=== PATIENT | male | born 1945 | race Caucasian/White ===

== ENCOUNTER 2022-12-12 07:56 | Observation (INO) ==
--- NOTE | 2022-10-25 14:16 | PAT Medication Instructions ---
Medication Instructions Date of Service October 25, 2022 Home Medications aspirin 81 mg tablet,delayed release 81 mg PO QAM atorvastatin 40 mg tablet 40 mg PO QAM clopidogrel 75 mg tablet 75 mg PO QAM cyanocobalamin (vitamin B-12) 1,000 mcg tablet 1,000 mcg PO QAM isosorbide mononitrate 30 mg tablet,extended release 24 hr 30 mg PO QAM losartan 100 mg-hydrochlorothiazide 25 mg tablet 1 tab PO QAM magnesium oxide 400 mg PO QAM metoprolol succinate 100 mg tablet,extended release 24 hr 100 mg PO QAM multivitamin 1 tab PO QAM omega-3 fatty acids 1,000 mg PO QAM potassium gluconate 600 mg (99 mg) tablet 600 mg PO QAM pyridoxine (vitamin B6) 200 mg tablet 200 mg PO QAM ASK your prescriber and surgeon clopidogrel 75 mg tablet 75 mg PO QAM (for spinal anesthesia: will need to hold Plavix/clopidogrel for at least 7 days prior to surgery) aspirin 81 mg tablet,delayed release 81 mg PO QAM (okay to continue for spinal anesthesia) STOP taking 2 weeks before surgery omega-3 fatty acids 1,000 mg PO QAM DO NOT take the morning of surgery potassium gluconate 600 mg (99 mg) tablet 600 mg PO QAM cyanocobalamin (vitamin B-12) 1,000 mcg tablet 1,000 mcg PO QAM losartan 100 mg-hydrochlorothiazide 25 mg tablet 1 tab PO QAM magnesium oxide 400 mg PO QAM multivitamin 1 tab PO QAM pyridoxine (vitamin B6) 200 mg tablet 200 mg PO QAM Take morning of surgery With a small sip of water, OTHERWISE NOTHING TO EAT OR DRINK AFTER MIDNIGHT: metoprolol succinate 100 mg tablet,extended release 24 hr 100 mg PO QAM isosorbide mononitrate 30 mg tablet,extended release 24 hr 30 mg PO QAM atorvastatin 40 mg tablet 40 mg PO QAM Other Notes If you have any questions please call us at [phone] or [phone] or [phone] or [phone]
--- NOTE | 2022-10-31 13:17 | Anesthesiology Consultation ---
Date of Service October 31, 2022 Assessment & Plan (1) Encounter for pre-operative examination: Plan - awaiting pt determination (if requests bilat TKA will have to re-discuss with anesthesiologist). - risks of bilat TKA with anesthesiologist requested by pt. Case discussed with Dr. Pina who advised given patient's cardiac history, anesthesia would advise the pt pursue unilateral TKA due to elevated risk with bilateral TKA. Surgeon's and patient office made aware. Pt states he wishes to consider his options and will notify surgeon's office. - anesthesia complication/concern: severe sore throat and thrush post-intubation with CABG. - plavix/ASA: to continue aspirin berry-operatively per cardiology. Cardiology was contacted and advises holding plavix maximum of 5 days. - cardiology clearance 09/29/22: "...able to achieve appropriate METS w/o sxs--will clear from cardiac perspective. Should not stop ASA preop. May hold plavix from cardiac perspective up to 5 days preop and should resume as soon as safely possible postop..." - cardiology 05/02/22: "...denies chest pain or SOB or palpitations, SINGER with no limitation...12/2020 carotids-mild < 50% stenosis bilaterally...coronary artery disease-history of NSTEMI 2002, s/p PCI to diag and stent to RCA 2001 and 2002 s/p CABG x 3 with no clinical angina...PVCs-moderate burden, on holter, asymptomatic, monitor...return in about 1 year..." - bilat vs staged TKA: Risks discussed with patient and he prefers to proceed with bilat TKA at this time. He expresses plan to further discuss consideration with surgeon's office and anesthesiologist. - Outpatient joint assessment: Patient is currently scheduled for inpatient pathway. If re-evaluated pending system levels during current pandemic/surgeon requests outpatient pathway for either bilat or unilateral TKA, patient is not acceptable candidate for outpatient joint program from anesthesia standpoint. Chart Review Chart Review: Pending: Refer to Additional Notes / Consult section and Patient seen in Pre Admission Testing Teaching & Discussion Pre-Anesthesia Teaching/Discussion Notes: Instructed NPO after midnight before surgery, except medications with 15 cc of water. Medication instructions provided according to the PAT guidelines. History Surgery Operation Date: 12/12/22 08:50 Proposed Procedures p Bilateral Total Knee Arthroplasty - Ruel Mcgee, Height/Weight Height: 5 ft 7 in Weight: 90.718 kg Allergies Allergy/AdvReac Type Severity Reaction Status Date / Time lisinopril AdvReac Intermediate cough Uncoded 10/31/22 09:56 Medications Home Medications Medication Instructions Recorded Confirmed Last Taken aspirin 81 mg tablet,delayed 81 mg PO QAM 09/21/20 10/19/22 09/21/20 08:00 release atorvastatin 40 mg tablet 40 mg PO QAM 09/21/20 10/19/22 09/21/20 08:00 clopidogrel 75 mg tablet 75 mg PO QAM 09/21/20 10/19/22 09/21/20 08:00 cyanocobalamin (vitamin B-12) 1,000 mcg PO QAM 09/21/20 10/19/22 09/21/20 08:00 1,000 mcg tablet isosorbide mononitrate 30 mg 30 mg PO QAM 09/21/20 10/19/22 09/22/20 08:00 tablet,extended release 24 hr losartan 100 1 tab PO QAM 09/21/20 10/19/22 09/21/20 08:00 mg-hydrochlorothiazide 25 mg tablet magnesium oxide 400 mg PO QAM 09/21/20 10/19/22 09/21/20 08:00 metoprolol succinate 100 mg 100 mg PO QAM 09/21/20 10/19/22 09/22/20 08:00 tablet,extended release 24 hr multivitamin 1 tab PO QAM 09/21/20 10/19/22 09/21/20 08:00 omega-3 fatty acids 1,000 mg PO QAM 09/21/20 10/19/22 09/21/20 08:00 potassium gluconate 600 mg (99 mg) 600 mg PO QAM 09/21/20 10/19/22 09/21/20 08:00 tablet pyridoxine (vitamin B6) 200 mg 200 mg PO QAM 09/21/20 10/19/22 09/21/20 08:00 tablet Past Medical History Medical History (Updated 10/31/22 @ 13:38 by Kaelyn Boland PA-C) CAD (coronary artery disease) S/p 3 vessel CABG 07/05/19 S/p diagonal and RCA stent 2001 RCA stent 2002 GERD (gastroesophageal reflux disease) rare, diet triggered Hyperlipidemia Hypertension controlled, stable per pt Myocardial Infarction NSTEMI 2002 and 2006 Prediabetes Pulmonary nodule Spinal stenosis Patient denies h/o stroke, seizures, heart failure, blood clots or blood transfusions. Exercise / Class Metabolic Activity II 4-5 Yardwork/Stairs/Walk up hill (denies chest discomfort or shortness of breath with 13 steps) Past Family History Family History Other No family history of adverse response to anesthesia Past Surgical History Surgical History History of arthroscopy RIGHT KNEE History of colonoscopy History of coronary artery bypass graft CABG x3 (06/2019) History of esophagogastroduodenoscopy (EGD) History of heart artery stent Stents to diagonal and RCA 2001 RCA stent 2002 History of lumbar laminectomy History of repair of rotator cuff RIGHT History of tonsillectomy and adenoidectomy History of tooth extraction S/P tendon repair left quadriceps repair (09/22/20): LMA#5.0, atraumatic + PNB at [facility] Past Anesthesia History No Hx of Anesthesia Complications and No Family Hx of Anesthesia Complications History of PONV No Hx of PONV and No Hx of Motion Sickness Social History Smoking Status: Never smoker Do You Dip or Chew Tobacco: No Hx Alcohol Use: Yes alcohol intake frequency: holidays/special occasions only Hx Substance Use: No substance use type: does not use Review of Systems Occasional snoring, denies witnessed apneas. Patient denies chest pain, shortness of breath, dyspnea on exertion, fever, chills, cough, wheezing, or palpitations. Physical Exam Vital Signs Vitals BP 128/62 P 61 TEMP 98.4 SP02 98% on RA RESP 18 Physical Full cervical extension range of motion without pain TMD 3.5 finger breadths Mallampati Score 2 Dentition: lower partial and upper plate-both removable, denies chipped or loose teeth, caps/crowns Lungs: normal respiratory effort. Clear throughout to auscultation, no adventitious breath sounds Cardiac: regular rate and rhythm, no murmurs noted Carotid arteries: negative bruit bilat Lab Results Anesthesia Preop Results Results Anesthesia Widget: WBC 5.53 K/ul (4.8-10.8) 10/31/22 Hgb 13.0 g/dl (14.0-18.0) L 10/31/22 Hct 37.4 % (42.0-52.0) L 10/31/22 Plt 186 K/uL (130-400) 10/31/22 Na 141 mmol/L (136-145) 10/31/22 K 4.3 mmol/L (3.5-5.1) 10/31/22 Cl 106 mmol/L (98-107) 10/31/22 CO2 33 mmol/L (21-32) H 10/31/22 BUN 19 mg/dl (6-23) 10/31/22 Creat 0.89 mg/dl (0.6-1.4) 10/31/22 Glucose Level 97 mg/dl (70-99(Fasting)) 10/31/22 PT 11.4 Seconds (9.0-12.0) 10/31/22 PTT 27.3 Seconds (21.0-31.0) 10/31/22 INR 1.0 (0.9-1.1) 10/31/22 Blood Type A Positive 10/31/22 Antibody Screen NEGATIVE 10/31/22 Testing Electrocardiogram Date: 10/31/22 Sinus bradycardia, rate 55 bpm Nonspecific T wave abnormality Chest X-Ray Date: 10/31/22 The patient is status post midline sternotomy. The heart is enlarged noting atherosclerotic calcification of the thoracic aorta. Epicardial pacing leads are in place. The pulmonary vasculature is noted congested. There is mild bibasilar scarring/atelectasis. The lungs and pleural spaces are otherwise clear. There is no pneumothorax. The skeletal structures are osteopenic. The bony thorax appears intact. Degenerative change is noted in the shoulders and spine. IMPRESSION: Cardiomegaly with no active disease in the chest. Stress Test Date: 06/05/19 Pharmacologic Moderate anterior apical ischemia EF 50% Cardiac Catheterization Date: 07/01/19 Left main: distal 20% stenosis LAD: 90% stenosis Cx: 80-90% stenosis, ostial 50% stenosis RCA: proximal 95% stenosis, mid and distal 50% stenosis Significant 3 vessel CAD Cardiac surgery evaluation for CABG COVID-19 Risk Screen Screening Information COVID-19 Screen Date: 10/31/22 Exposure 21 Days Family/Household +COVID Last 21 Days: No Exposure 10 Days Any COVID Exposure Last 10 Days: No Symptoms Last 10 Days Experienced COVID Sx Last 10 Days: No + COVID 0-90 Days COVID + in Last 0-90 Days: No
--- NOTE | 2022-12-06 17:56 | History & Physical Report ---
Date of Service December 06, 2022 Assessment & Plan (1) Arthritis of knee, degenerative: We will proceed with a right total knee arthroplasty. Postoperatively he will be started on aspirin and Plavix for DVT prophylaxis. We will keep him overnight in the hospital for postop medical management. He plans to have home health in [place] upon discharge. History of Present Illness Chief Complaint: Osteoarthritis of the right knee. Primary Care Provider: KRYSTYNA PCP August is a pleasant 77-year-old male who is been doing with chronic increasing right knee pain. X-rays and clinical examination have been diagnostic for advanced osteoarthritis of the right knee. After failing extensive conservative treatment, he has elected proceed with a right total knee arthroplasty.. Allergies Allergy/AdvReac Type Severity Reaction Status Date / Time lisinopril AdvReac Intermediate cough Uncoded 10/31/22 09:56 Home Medications Medication Instructions Recorded Confirmed Type aspirin 81 mg tablet,delayed 81 mg PO QAM 09/21/20 10/19/22 History release atorvastatin 40 mg tablet 40 mg PO QAM 09/21/20 10/19/22 History clopidogrel 75 mg tablet 75 mg PO QAM 09/21/20 10/19/22 History cyanocobalamin (vitamin B-12) 1,000 mcg PO QAM 09/21/20 10/19/22 History 1,000 mcg tablet isosorbide mononitrate 30 mg 30 mg PO QAM 09/21/20 10/19/22 History tablet,extended release 24 hr losartan 100 1 tab PO QAM 09/21/20 10/19/22 History mg-hydrochlorothiazide 25 mg tablet magnesium oxide 400 mg PO QAM 09/21/20 10/19/22 History metoprolol succinate 100 mg 100 mg PO QAM 09/21/20 10/19/22 History tablet,extended release 24 hr multivitamin 1 tab PO QAM 09/21/20 10/19/22 History omega-3 fatty acids 1,000 mg PO QAM 09/21/20 10/19/22 History potassium gluconate 600 mg (99 mg) 600 mg PO QAM 09/21/20 10/19/22 History tablet pyridoxine (vitamin B6) 200 mg 200 mg PO QAM 09/21/20 10/19/22 History tablet Past Med/Surg History Medical History CAD (coronary artery disease) S/p 3 vessel CABG 07/05/19 S/p diagonal and RCA stent 2001 RCA stent 2002 GERD (gastroesophageal reflux disease) rare, diet triggered Hyperlipidemia Hypertension controlled, stable per pt Myocardial Infarction NSTEMI 2002 and 2006 Prediabetes Pulmonary nodule Spinal stenosis Surgical History History of arthroscopy RIGHT KNEE History of colonoscopy History of coronary artery bypass graft CABG x3 (06/2019) History of esophagogastroduodenoscopy (EGD) History of heart artery stent Stents to diagonal and RCA 2001 RCA stent 2002 History of lumbar laminectomy History of repair of rotator cuff RIGHT History of tonsillectomy and adenoidectomy History of tooth extraction S/P tendon repair left quadriceps repair (09/22/20): LMA#5.0, atraumatic + PNB at [facility] Family History Other No family history of adverse response to anesthesia Social History Smoking Status: Never smoker Second Hand Exposure: Yes (hx); Do You Dip or Chew Tobacco: No; Hx Alcohol Use: Yes Hx Substance Use: No Preferred Language: Maltese Communication Ability: Effective Referral Nurse Required: No Beliefs That Will Affect Care: None Current Living Situation: Spouse Feels Safe at Home: Yes Assistive Devices: Denture - Upper, Denture - Lower and Glasses Review of Systems All systems reviewed & are unremarkable except as noted in HPI & below. Physical Exam Physical examination the right knee does show a varus deformity. He has tenderness palpation over the distal medial femoral condyle and over the medial joint line.. Constitutional WD/WN, vitals as above Eyes PERRL, conjunctivae normal, anicteric sclerae ENMT external ear and nose normal, oropharynx normal Neck trachea midline, no thyromegaly Respiratory normal respiratory effort, lungs clear to auscultation Cardiovascular RRR, no murmur, no edema Gastrointestinal (Abdomen) normal bowel sounds, soft, nontender, no hepatosplenomegaly Skin no rashes, warm and dry Psychiatric A+Ox3, euthymic affect Results & Data Results & Data Laboratory Results . Diagnostic Findings X-rays of the right knee show advanced osteoarthritis with joint space narrowing, osteophyte formation, and [id number] articulation.. PG Care Time/CCT Total # of Minutes Spent Total Time Spent with Patient: Total time spent is greater than 50% in coordination of care (as documented) at patient's floor/unit and/or counseling patient: Coding Level of Care Code None Diagnoses Arthritis of knee, degenerative M17.10
[~2022-12-12 07:56] MED LIST: ACETAMINOPHEN 500 MG TAB PO SCH; BUPIVACAINE 0.5 % 5 MG/1 ML PF 10ML VIAL ONE; FAMOTIDINE 20 MG TAB PO SCH; GABAPENTIN 300 MG CAP PO SCH; General Order Problem(s) SCH; LR 500ML BOLUS, THEN 15ML/HR IV SCH; LR 60ML/HR IV SCH; ORTHO JOINT MIX INFIL SCH; ROPIVACAINE 0.5% 5 MG/ML 30 ML VIAL ONE; TRANEXAMIC ACID 1,000 MG **IV Intra-op IV SCH; TRANEXAMIC ACID 1,000 MG **IV Pre-op IV SCH; ceFAZolin 2000MG 2,000 MG/15 ML SYR IV SCH; dexAMETHasone 4 MG TAB PO SCH
--- NOTE | 2022-12-12 09:04 | History & Physical Bridge Note ---
Date of Service December 12, 2022 History & Physical Bridge Note I have examined the patient, reviewed the History & Physical and in the interval since the performance of the History & Physical I have noted the following changes of clinical significance: no changes noted
[2022-12-12] MEDS ORDERED: MIDAZOLAM HCL 1 MG/ML 2ML VIAL ONE (09:09)
[2022-12-12] MEDS ORDERED: fentaNYL citrate PF 100 MCG/2 ML VIAL ONE (09:09)
[2022-12-12] MEDS ORDERED: PROPOFOL IV EMULSION 10 MG/ML 20 ML VIAL IV ONE ×2 (09:09→10:32)
[2022-12-12] MEDS ORDERED: LIDOCAINE 2% 2 ML VIAL/AMP(20MG/ML) INFIL ONE (09:09)
[2022-12-12] MEDS ORDERED: Nursing to Pharmacy Communication SCH (09:30)
[2022-12-12] MEDS ORDERED: ORTHO JOINT ANESTHETIC ONE (09:31)
[2022-12-12] MEDS ORDERED: PHENYLEPHRINE 100MCG/ML 5ML SYR ONE (10:56)
--- NOTE | 2022-12-12 11:19 | Operative Report ---
PG Post Operative Report Pre & Post Diagnosis Operation Date: 12/12/22 10:00 Pre-Op Diagnosis: Arthritis of right knee, degenerative. Post-Op Diagnosis: Arthritis of right knee, degenerative. I identified the patient and participated in the time-out.: Yes Procedure Operation Date: 12/12/22 10:00 Actual Procedures p Left Total Knee Arthroplasty, Cemented(Left) - Ruel Mcgee DO Surgeon Ruel Mcgee DO Wharfmaster Ruel Noriega PA-C Estimated Blood Loss 30 Findings Consistent with Post-Op Diagnosis Specimens Left femoral and tibial bone Description of Procedure Implants used: I used a Sangeetha Persona total knee arthroplasty system with a size 8 PS standard femur, E tibia, 34 oval patella, and a size 10 CPS polyethylene bearing. All components were cemented in place with Biomet cement. August arrived [facility] for the above procedure. He was seen in the preoperative holding area and the operative extremity was identified and signed. He was given a preoperative antibiotic, TXA, a spinal anesthetic and an adductor nerve block. He was taken back to the operating room and laid on the table in supine position. He was given basic sedation. The operative knee was then prepped and draped in sterile fashion. A timeout was done, and the patient and the operative extremity was properly identified. A midline incision was made directly over the patella. Dissection was taken down to the extensor mechanism. A midvastus arthrotomy was used. The medial retinaculum was released and the fat pad was mostly excised. The knee was flexed and the ACL, PCL, and meniscus were removed. A drill was sent down the center of the femoral canal followed by an intramed ullary myranda. Off that myranda a distal femoral cutting block was placed. 9 mm was resected off the distal femur at 5 of valgus. A posterior referencing AP sizing guide was then placed on the distal femur. The femur measured to be a size 8. 2 drill holes were placed in 3 of external rotation. A 4-in-1 cutting block was then impacted into place. Anterior, posterior, and chamfer cuts were then made. The proximal tibia was then exposed. An external tibial alignment guide was placed. A tibial cut guide was then anchored in place and the proximal tibia was then resected. The posterior aspect of the knee was then opened up and any additional meniscus fragments and osteophytes were removed. The tibia measured to be a size E. The tibial plate was then placed in the appropriate rotation and the tibia was drilled and punched. Trial components were then placed. I used a size 10 CPS polyethylene insert. The knee was brought through a full range of motion and felt to be stable. The peg holes for the femoral component were then drilled. The patella was then everted and 9 mm was resected off the posterior aspect of the patella. The patella measured to be a size 34 oval. 3 peg holes were then drilled. A trial patella was placed. The knee was once again brought through a full range of motion and felt to be stable. Trial components were then removed. The surrounding soft tissues were injected with 100 cc of an orthopedic pain control cocktail. All components were then cemented into place with Biomet cement. The final polyethylene insert was then snapped into place. Once cement was dry the tourniquet was deflated. Hemostasis was obtained. A dilute betadyne lavage was then done for 3 minutes. The joint was then irrigated with normal saline solution. The midvastus arthrotomy was then closed with #1 Vicryl suture. The skin was closed with 2-0 Vicryl, 3-0V lock suture, and berenice. A soft compressive dressing was placed. He was then transferred to a hospital bed and taken to the postanesthesia care unit in stable condition. He tolerated the procedure well. Ruel Noriega PA-C, was present for the entire procedure. He was critical for patient positioning, prepping, draping, retraction exposure, wound closure and application of sterile dressing. I attest to the content of the Intraoperative Record and any orders documented therein. Any exceptions are noted below.
--- NOTE | 2022-12-12 12:12 | XRay Report ---
TWO VIEWS LEFT KNEE CLINICAL HISTORY: Postoperative examination. FINDINGS: AP and crosstable lateral portable views of the left knee are compared to study dated 023. A left knee arthroplasty is in near anatomic alignment. There has been undersurface remodeling o f the patella. No acute fracture is seen. There are expected postoperative changes around the knee in cluding skin clips, soft tissue edema, and subcutaneous gas. A 2.3 cm osteochondroma arises from the lateral femoral metaphysis. This is unchanged. Surgical clips are seen within the medial soft tissues . IMPRESSION: Expected postoperative findings status post left knee arthroplasty. No acute fracture is seen. ACT 112: Negative or not required by law. Electronically signed by: Jason Acuña M.D. 12/12/2022 12:11 PM
--- NOTE | 2022-12-12 13:43 | Anesthesiology Progress Note ---
Date of Service December 12, 2022 Anesthesia Post Procedure Vital Signs Vital Signs: Temp Pulse Pulse Resp BP Pulse Ox O2 Del Method 12/12/22 13:40 97.5 F L 52 L 16 109/59 L 100 Nasal Cannula 12/12/22 13:30 48 L 16 113/56 L 100 Nasal Cannula 12/12/22 13:20 47 L 13 117/56 L 100 Nasal Cannula 12/12/22 13:10 53 L 17 107/59 L 100 Nasal Cannula 12/12/22 13:00 52 L 17 113/57 L 100 Nasal Cannula 12/12/22 12:50 51 L 18 109/54 L 100 Nasal Cannula 12/12/22 12:40 52 L 22 112/59 L 99 Nasal Cannula 12/12/22 12:30 48 L 22 111/58 L 99 Nasal Cannula 12/12/22 12:20 54 L 16 112/56 L 99 Nasal Cannula 12/12/22 12:10 51 L 16 109/57 L 98 Nasal Cannula 12/12/22 12:00 50 L 16 98/47 L 99 Nasal Cannula 12/12/22 11:50 52 L 18 108/57 L 99 Nasal Cannula 12/12/22 11:41 98.2 F 56 L 16 105/47 L 99 Nasal Cannula 12/12/22 08:26 98.2 F 52 L 20 159/89 H 94 Room Air O2 Flow Rate 12/12/22 13:40 2 12/12/22 13:30 2 12/12/22 13:20 2 12/12/22 13:10 2 12/12/22 13:00 2 12/12/22 12:50 2 12/12/22 12:40 2 12/12/22 12:30 2 12/12/22 12:20 2 12/12/22 12:10 2 12/12/22 12:00 2 12/12/22 11:50 4 12/12/22 11:41 4 12/12/22 08:26 Transfer of Care Handoff Completed per policy Notes Mental Status: alert / awake / arousable and participated in evaluation Patient Amnestic to Procedure: Yes Nausea / Vomiting: adequately controlled Pain: adequately controlled Airway Patency, RR, SpO2: stable & adequate BP & HR: stable & adequate Hydration State: stable & adequate Neuraxial Anesthesia: was administered and sensory block is resolving Anesthetic Complications: no major complications apparent and Pt Satisfied with anesthetic care
[2022-12-12] MEDS ORDERED: ONDANSETRON INJ 2 MG/ML 2 ML VIAL IV PRN (14:00)
[2022-12-12] MEDS ORDERED: NALOXONE HCL 0.4 MG/1 ML VIAL/CARP IV PRN (14:00)
[2022-12-12] MEDS ORDERED: MAGNESIUM HYDROXIDE SUSP 30 ML UDC PO PRN (14:00)
[2022-12-12] MEDS ORDERED: bisacodyL 10 MG SUPP PR PRN (14:00)
[2022-12-12] MEDS ORDERED: SODIUM CHLORIDE 0.9% 1000ML 1,000 ML IV SCH (14:00)
[2022-12-12] MEDS ORDERED: METOCLOPRAMIDE HCL INJ 5 MG/ML 2 ML VIAL IV PRN (14:00)
[2022-12-12] MEDS ORDERED: HYDROmorphone INJ 0.5 MG/0.5 ML SYR IV PRN (14:00)
[2022-12-12] MEDS ORDERED: oxyCODONE HCL IR 5 MG TAB (IMMEDIATE RELEASE) PO PRN (14:00)
[2022-12-12] MEDS: KETOROLAC TROMETHAMINE 15 MG/ML VIAL IV SCH ×2 (15:20→19:47)
[2022-12-12] MEDS: ACETAMINOPHEN 500 MG TAB PO SCH ×2 (15:21→21:31)
[2022-12-12] MEDS: ceFAZolin 2000MG 2,000 MG/15 ML SYR IV SCH (17:39)
[2022-12-12] MEDS: ASPIRIN 81 MG ECTAB PO SCH (19:50)
[2022-12-12] MEDS: DOCUSATE SODIUM 100 MG CAP PO SCH (19:50)
[2022-12-12] MEDS ORDERED: SENNA 8.6 MG TAB PO SCH (21:00)
[2022-12-13] MEDS: ceFAZolin 2000MG 2,000 MG/15 ML SYR IV SCH (02:13)
[2022-12-13] MEDS: KETOROLAC TROMETHAMINE 15 MG/ML VIAL IV SCH ×2 (02:13→07:22)
[2022-12-13] MEDS: ACETAMINOPHEN 500 MG TAB PO SCH (05:32)
[2022-12-13] MEDS: DOCUSATE SODIUM 100 MG CAP PO SCH (07:20)
[2022-12-13] MEDS: ASPIRIN 81 MG ECTAB PO SCH (07:22)
--- NOTE | 2022-12-13 07:31 | Orthopedic Progress Note ---
Date of Service December 13, 2022 Assessment & Plan (1) Status post left knee replacement: Overall he is doing very well. He is not having much pain in the left knee. He will be seen by physical therapy today for ambulation and range of motion exercises. He is on aspirin and Plavix for DVT prophylaxis. The nursing staff can change his dressing after physical therapy today. He can be discharged home later today. He will follow-up with orthopedics in 2 weeks. Garett Koch was seen and examined at bedside this morning. Overall he is doing very well. He is not having much pain in the left knee. He has been up and ambulating to the bathroom. He has no complaints.. Review of Systems All systems reviewed & are unremarkable except as noted in HPI & below. Physical Exam On physical examination of left knee, the dressing is clean and dry. His leg is out full extension. He has active dorsiflexion plantarflexion of his left ankle.. Results & Data Results & Data Laboratory Results . Diagnostic Findings Postoperative x-rays of the left knee show the prosthesis to be in anatomic alignment without any evidence of fracture, cage, or loosening.. PG Care Time/CCT Total # of Minutes Spent Total Time Spent with Patient: Total time spent is greater than 50% in coordination of care (as documented) at patient's floor/unit and/or counseling patient: Coding Level of Care Code 66534 Post Operative Follow-Up Diagnoses Status post left knee replacement Z96.652
--- NOTE | 2022-12-13 07:32 | Discharge Summary ---
Date of Service December 13, 2022 Admission HPI (Per Admitting) August is a pleasant 77-year-old male who is been doing with chronic increasing right knee pain. X-rays and clinical examination have been diagnostic for advanced osteoarthritis of the right knee. After failing extensive conservative treatment, he has elected proceed with a right total knee arthroplasty.. Admission Exam (Per Admitting) Physical examination the right knee does show a varus deformity. He has tenderness palpation over the distal medial femoral condyle and over the medial joint line.. Principal Diagnosis Same as "Discharge Diagnosis" noted below under Discharge Instructions. Discharge Exam On physical examination of left knee, the dressing is clean and dry. His leg is out full extension. He has active dorsiflexion plantarflexion of his left ankle.. Discharge Data Procedures Performed Operation Date: 12/12/22 10:00 Actual Procedures p Left Total Knee Arthroplasty, Cemented(Left) - Ruel Mcgee DO Ordered Studies 12/12/22 05:00 US - OR guided needle placemen Routine Hospital Course (1) Status post left knee replacement: On December 12, 2022 August arrived at [facility] and underwent a left knee replaced without complication. He had a spinal anesthetic. Postoperatively he was started on aspirin and Plavix for DVT prophylaxis and transferred to the general orthopedic floors. His hospital course was uneventful. On postop day #1, his vital signs were stable and his pain was well controlled. He was able to participate well with physical therapy doing ambulation and range of motion exercises. He was then discharged home. He will follow-up with orthopedics in 2 weeks. PG Care Time/CCT Total # of Minutes Spent Total Time Spent with Patient: Total time spent is greater than 50% in coordination of care (as documented) at patient's floor/unit and/or counseling patient: Discharge Plan Discharge Items Patient Disposition: Home - Home Health Services Reason For Visit: DJD Bilateral Knee Discharge Diagnosis: Left knee replacement Activity: As commented below Non-emergency contact: Surgeon Call non-emergency contact if: your wound has increased redness and your wound has increased drainage Follow-up/Referrals: Stephenie Martinez MD [Outside Practitioners] - Diet: Regular Ambulatory Orders: Basic Metabolic Panel (Routine) Timeframe: 1 Day Location: Determined by Patient Ordered By: Kaelyn Cartertl Attending Provider Instructions: Activity and Therapy Recommendations: * If you are using [facility] then therapy will be provided at your home until they feel you have accomplished all of your goals. * If you are using [facility] then Physical Therapy will be provided until they feel you are ready to start Outpatient Physical Therapy. * If you are not using home therapy then Outpatient Physical Therapy should start about 3-5 days from your day of surgery. Therapy will last about 6-10 weeks * It is important not to put a pillow under your knee when you are relaxing or sleeping. It is just as important to make sure you are getting your knee perfectly straight as it is to regain your knee bend. * You were shown a series of exercises in the hospital. Do these exercises three times each day including the exercises you were shown in physical therapy. * Get up and walk several times each day. For the first four weeks, try not to stand or walk for more than one hour at a time. If you do stand or walk for more than one hour, you will not hurt anything, but your leg will likely swell. * As you feel comfortable, you may change from the walker or crutches to a cane and then to independent walking. Medications: * Narcotic You will likely be sent home from the hospital with a prescription for the narcotic pain medication that worked best throughout your stay. * Aspirin Most patients will be required to take Aspirin 81mg twice a day for 6 weeks after surgery. This is obtained [id number] and a prescription is not necessary. * Other medications may be prescribed for specific circumstances. If you have any questions, please call the office at . * Resume previous home medications unless otherwise instructed TEDs/Elastic Stockings: The white elastic stockings help limit swelling and prevent blood clots from forming in your legs.~ The more you wear them, the more they work. Wear them for six weeks. Dressing Care: The dressing can be changed after physical therapy on postop day #1. Daily dry dressing changes for a few days, especially if the incision is still draining some. If the incision is not draining then you may leave the berenice open to air. If there is a little bit of drainage or if the berenice are getting stuck on your clothing then cover the incision with a dry dressing. The berenice will be removed at your 2 week follow-up appointment. Showering: You may shower 5 days from the day of surgery as long as the incision is no longer draining. You may shower with the berenice exposed. Let soapy water run over the berenice and pat them dry. Do not scrub or soak the incision. Things To Watch For: * Drainage from the incision site that occurs more than one week after your surgery. * Increased redness at the incision site. * Fever above 102 degrees Fahrenheit. * Unusual chest pain or shortness of breath. * Call [facility] at with any of the above problems Follow-Up Visit: Follow-up with Dr. Mcgee's PA (Ruel Noriega) 2-3 weeks after your day of surgery. He will remove your berenice and answer any questions. If you have any additional questions or concerns, Dr Mcgee is usually in the office at the same time and will be available An appointment was probably scheduled when you signed-up for surgery in the office. If you have any questions call Office Instructions: More detailed instructions as well as Frequently Asked Questions were provided in a folder by our office when you signed-up for surgery. Please review these instructions when you get home. If you have any further questions or concerns, please feel free to call the off ice at [phone] Pending Studies at Discharge: No Stand-Alone Forms: My New [facility], Smoking Cessation Medications and DC Order Prescriptions: New oxycodone-acetaminophen 5-325 mg tablet 1 tab PO Q6H PRN (Reason: pain) Qty: 30 0RF Continued multivitamin Tablet 1 tab PO QAM atorvastatin 40 mg Tablet 40 mg PO QAM isosorbide mononitrate 30 mg Tablet Extended Release 24 Hr 30 mg PO QAM metoprolol succinate 100 mg Tablet Extended Release 24 Hr 100 mg PO QAM cyanocobalamin (vitamin B-12) 1,000 mcg Tablet 1,000 mcg PO QAM clopidogrel 75 mg Tablet 75 mg PO QAM losartan-hydrochlorothiazide 100-25 mg Tablet 1 tab PO QAM pyridoxine (vitamin B6) 200 mg Tablet 200 mg PO QAM omega-3 fatty acids Capsule 1,000 mg PO QAM potassium gluconate 600 mg (99 mg) Tablet 600 mg PO QAM magnesium oxide 400 mg magnesium Tablet 400 mg PO QAM Changed aspirin 81 mg Tablet,Delayed Release (Dr/Ec) 81 mg PO BID 42 Days Qty: 0 0RF Admission Data Admit Date/Time: 12/12/22 11:46 Attending Provider: Ruel Mcgee Admit Provider: Ruel Mcgee Primary Care Provider: Mani Grayson
[2022-12-13] MEDS ORDERED: dexAMETHasone 4 MG TAB PO SCH (08:00)
[2022-12-13] MEDS ORDERED: METOPROLOL SUCC 50MG EXT REL TAB PO SCH (09:00)
[2022-12-13] MEDS ORDERED: LOSARTAN/HCTZ 50/12.5MG TAB PO SCH (09:00)
[2022-12-13] MEDS ORDERED: CLOPIDOGREL BISULFATE 75 MG TAB PO SCH (09:00)
[2022-12-13] MEDS ORDERED: MULTIVITAMIN TAB PO SCH (09:00)
[2022-12-13] MEDS ORDERED: NON-FORMULARY MEDICATION (Potassium Gluconate 600 mg (99 mg) Tablet) PO SCH (09:00)
[2022-12-13] MEDS ORDERED: MAGNESIUM OXIDE 400 MG TAB PO SCH (09:00)
[2022-12-13] MEDS ORDERED: ATORVASTATIN 40 MG TAB PO SCH (09:00)
== END 2022-12-13 11:38 | disposition home health service (06) ==
LOC: ASU 07:56 → 3E 07:56